=== PATIENT | male | born 1985 | race Caucasian/White ===

== ENCOUNTER 2017-03-19 12:39 | Inpatient (IN) | payer SELFPAY ==
[~2017-03-19] VITALS: Ht 177.8 cm; Wt 67.7 kg
[2017-03-19] VITALS (7 sets, daily range): BP systolic 102–140; BP diastolic 61–86; PULSE 63–97; RESP 16–20; TEMP 96.4–97.7; O2SAT 97–98
[2017-03-19 13:17] LABS: BILIRUBIN, URINE NEG (NEG); BLOOD, URINE TRACE (NEG); GLUCOSE,URINE NEG (NEG); KETONE, URINE NEG (NEG); NITRITE,URINE NEG (NEG); URINE LEUKOCYTE ESTERASE NEG (NEG)
[2017-03-19] MEDS ORDERED: SODIUM CHLOR 0.9% 1000 ML INJ 1,000 ML IV SCH (13:23)
[2017-03-19 13:24] LABS: RBC, URINE 0-3 /hpf (0-3); SQUAMOUS EPITHELIAL CELL URINE 0-5 /hpf (0-5); URINE COLOR YELLOW (YELLW/STRAW)
[2017-03-19] MEDS ORDERED: SODIUM CHLORIDE 0.9% FLUSH 10 ML FLUSH IV FLUSH PRN ×2 (13:30→15:15)
[2017-03-19] MEDS ORDERED: ONDANSETRON HCL 4 MG/2 ML VIAL IVP ONE (13:30)
[2017-03-19] MEDS ORDERED: MORPHINE SULFATE 4 MG/ML INJ IV PUSH ONE (13:30)
--- NOTE | 2017-03-19 13:35 | PD ---
HPI Chief Complaint: GI Complaint Time Seen by Provider: 13:23 Travel History International Travel<30 days: No Contact w/Intl Traveler<30days: No Traveled to known affect area: No History of Present Illness HPI 31yo M presented to the ED with RLQ abdominal pain. Pt states that last night he all of the sudden developed abdominal pain in the periumbilical region that migrated to the RLQ. He describes the pain as sharp and stabbing in nature, constant and a 10/10 on the pain scale. Pt denies eating anything abnormal or any sick contacts. Pt has no previous history of abdominal surgeries. Has a PMH of asthma, prostatitis and GERD. Pt reports nausea, vomiting and diarrhea. Pt denies any hematemesis, coffee ground emesis, hematochezia, lightheadedness, chest pain, SOB, fevers or myalgias. Modifying Factors: None Associated Signs & Symptoms: Nausea, vomiting, right lower quadrant abdominal pain starting last night Risk Factors: None PFSH Social History Tobacco Use: Yes Allergies-Medications (Allergen,Severity, Reaction): Coded Allergies: No Known Allergies (Unverified , 03/19/17) Reported Meds & Prescriptions Reported Meds & Active Scripts Active Reported Proair Respiclick Inh (Albuterol Sulfate) 90 Mcg/Act Aerp 2 Puff INH Q6H PRN Flomax (Tamsulosin HCl) 0.4 Mg Cap 0.8 Mg PO HS Review of Systems Except as stated in HPI: all other systems reviewed are Neg Gastrointestinal: Positive: Nausea, Vomiting, Diarrhea, Abdominal Pain Physical Exam Narrative GENERAL: 31yo M well-developed and well-nourished. In acute distress. Alert and oriented x3. SKIN: Warm and slight diaphoretic. HEAD: Atraumatic. Normocephalic. NECK: Trachea midline. No JVD. Supple. CARDIOVASCULAR: Regular rate and rhythm. RESPIRATORY: No accessory muscle use. Minimal bilateral expiratory wheezing. Breath sounds equal bilaterally. GASTROINTESTINAL: Abdomen soft and nondistended. Hepatic and splenic margins not palpable. Extreme tenderness localized to the RLQ with guarding. MUSCULOSKELETAL: Extremities without clubbing, cyanosis, or edema. No obvious deformities. NEUROLOGICAL: Awake and alert. No obvious cranial nerve deficits. Motor grossly within normal limits. Normal speech. PSYCHIATRIC: Appropriate mood and affect; insight and judgment normal. Data Data Last Documented VS Vital Signs Date Time Temp Pulse Resp B/P (MAP) Pulse Ox O2 Delivery O2 Flow Rate FiO2 03/19/17 14:00 18 03/19/17 13:37 84 134/86 (102) 97 Room Air 03/19/17 12:57 97.7 Orders Orders Urinalysis - C+S If Indicated (03/19/17 12:58) Complete Blood Count With Diff (03/19/17 13:23) Comprehensive Metabolic Panel (03/19/17 13:23) Lipase (03/19/17 13:23) Ct Abd/Pel W Iv Contrast(Rout) (03/19/17 13:23) Iv Access Insert/Monitor (03/19/17 13:23) Ecg Monitoring (03/19/17 13:23) Oximetry (03/19/17 13:23) Morphine Inj (Morphine Inj) (03/19/17 13:30) Ondansetron Inj (Zofran Inj) (03/19/17 13:30) Sodium Chlor 0.9% 1000 Ml Inj (Ns 1000 M (03/19/17 13:23) Sodium Chloride 0.9% Flush (Ns Flush) (03/19/17 13:30) Iohexol 350 Inj (Omnipaque 350 Inj) (03/19/17 14:09) Piperacil-Tazo 3.375 Gm Premix (Zosyn 3. (03/19/17 15:00) Admit Order (Ed Use Only) (03/19/17 14:51) Labs Laboratory Tests Test 03/19/17 12:55 03/19/17 13:26 Urine Collection Type CLEAN CATCH Urine Color YELLOW Urine Turbidity CLEAR Urine pH 6.0 Urine Specific [place] 1.016 Urine Protein NEG mg/dL Urine Glucose (UA) NEG mg/dL Urine Ketones NEG mg/dL Urine Occult Blood TRACE Urine Nitrite NEG Urine Bilirubin NEG Urine Leukocyte Esterase NEG Urine RBC 0-3 /hpf Urine Squamous Epithelial Cells 0-5 /hpf Microscopic Urinalysis Comment CULT NOT INDICATED Urine Collection Time 12:55 White Blood Count 17.7 TH/MM3 Red Blood Count 4.94 MIL/MM3 Hemoglobin 15.1 GM/DL Hematocrit 44.8 % Mean Corpuscular Volume 90.7 FL Mean Corpuscular Hemoglobin 30.5 PG Mean Corpuscular Hemoglobin Concent 33.6 % Red Cell Distribution Width 11.6 % Platelet Count 233 TH/MM3 Mean Platelet Volume 7.8 FL Neutrophils (%) (Auto) 80.5 % Lymphocytes (%) (Auto) 9.7 % Monocytes (%) (Auto) 8.5 % Eosinophils (%) (Auto) 0.8 % Basophils (%) (Auto) 0.5 % Neutrophils # (Auto) 14.3 TH/MM3 Lymphocytes # (Auto) 1.7 TH/MM3 Monocytes # (Auto) 1.5 TH/MM3 Eosinophils # (Auto) 0.1 TH/MM3 Basophils # (Auto) 0.1 TH/MM3 CBC Comment DIFF FINAL Differential Comment Blood Urea Nitrogen 15 MG/DL Creatinine 0.87 MG/DL Random Glucose 110 MG/DL Total Protein 7.5 GM/DL Albumin 4.1 GM/DL Calcium Level 9.6 MG/DL Alkaline Phosphatase 89 U/L Aspartate Amino Transf (AST/SGOT) 23 U/L Alanine Aminotransferase (ALT/SGPT) 31 U/L Total Bilirubin 0.5 MG/DL Sodium Level 139 MEQ/L Potassium Level 3.7 MEQ/L Chloride Level 106 MEQ/L Carbon Dioxide Level 25.3 MEQ/L Estimat Glomerular Filtration Rate 102 ML/MIN Lipase 149 U/L MDM Medical Decision Making Medical Screen Exam Complete: Yes Emergency Medical Condition: Yes Medical Record Reviewed: Yes Interpretation(s) Laboratory Tests Test 03/19/17 12:55 03/19/17 13:26 White Blood Count 17.7 TH/MM3 (4.0-11.0) Neutrophils (%) (Auto) 80.5 % (16.0-70.0) Monocytes (%) (Auto) 8.5 % (0.0-8.0) Neutrophils # (Auto) 14.3 TH/MM3 (1.8-7.7) Monocytes # (Auto) 1.5 TH/MM3 (0-0.9) Random Glucose 110 MG/DL (74-106) Last 24 hours Impressions Abdomen/Pelvis CT 03/19/17 1323 Signed Impressions: Service Date/Time: Sunday, March 19, 2017 14:01 - CONCLUSION: 1. Findings characteristic of mild or early acute appendicitis. Crescencio Rincon MD Differential Diagnosis Gastroenteritis versus dehydration versus metabolic issues versus appendicitis versus cholecystitis versus renal colic Narrative Course CAT scan is indicative of appendicitis and white count is elevated as well. Case is discussed with Dr. Low who would like the patient to be initiated on Zosyn, Nothing by mouth, and be admitted medically. Case is discussed with Dr. Villavicencio for admission. Diagnosis Primary Impression: Appendicitis Admitting Information Admitting Physician Requests: Admit Primo Saini MD Mar 19, 2017 13:35
[2017-03-19] MEDS ORDERED: TAMS5CAP PO (13:45)
[2017-03-19] MEDS ORDERED: ALBU1AER5 INH (13:45)
[2017-03-19 13:46] LABS: CHLORIDE 106 MEQ/L (98-107); SODIUM (NA) 139 MEQ/L (136-145)
[2017-03-19 13:50] LABS: ALBUMIN 4.1 GM/DL (3.4-5.0); AUTOMATED NEUTROPHIL # 14.3 TH/MM3 (1.8-7.7); BASOPHIL # 0.1 TH/MM3 (0-0.2); BASOPHIL % 0.5 % (0.0-2.0); BICARBONATE 25.3 MEQ/L (21.0-32.0); CALCIUM 9.6 MG/DL (8.5-10.1); EOSINOPHIL # 0.1 TH/MM3 (0-0.4); EOSINOPHIL % 0.8 % (0.0-4.0); GLUCOSE,RANDOM 110 MG/DL (74-106); HEMATOCRIT 44.8 % (39.0-51.0); HEMOGLOBIN 15.1 GM/DL (13.0-17.0); LIPASE 149 U/L (73-393); LYMPH % 9.7 % (9.0-44.0); LYMPHOCYTE # 1.7 TH/MM3 (1.0-4.8); MEAN CELL VOLUME 90.7 FL (80.0-100.0); MEAN CORPUSCULAR HEMOGLOBIN 30.5 PG (27.0-34.0); MEAN CORPUSCULAR HGB CONC 33.6 % (32.0-36.0); MEAN PLATELET VOLUME 7.8 FL (7.0-11.0); MONO % 8.5 % (0.0-8.0); MONOCYTE # 1.5 TH/MM3 (0-0.9); NEUT % 80.5 % (16.0-70.0); PLATELET COUNT 233 TH/MM3 (150-450); RED BLOOD COUNT 4.94 MIL/MM3 (4.50-5.90); RED CELL DISTRIBUTION WIDTH 11.6 % (11.6-17.2); WHITE BLOOD COUNT 17.7 TH/MM3 (4.0-11.0)
[2017-03-19 13:51] LABS: BLOOD UREA NITROGEN 15 MG/DL (7-18)
[2017-03-19 13:53] LABS: ALT (GPT) 31 U/L (12-78); AST (GOT) 23 U/L (15-37)
[2017-03-19 13:54] LABS: CREATININE 0.87 MG/DL (0.60-1.30); GLOMERULAR FILTRATION RATE 102 ML/MIN (>89)
[2017-03-19 13:55] LABS: TOTAL BILIRUBIN ADULT 0.5 MG/DL (0.2-1.0); TOTAL PROTEIN 7.5 GM/DL (6.4-8.2)
[2017-03-19 13:56] LABS: ALKALINE PHOSPHATASE 89 U/L (45-117)
[2017-03-19] MEDS ORDERED: IOHEXOL 350 MG/ML 10 ML VIAL (for RAD DIAG) IVCONTRAST ONE (14:09)
--- NOTE | 2017-03-19 14:30 | RADRPT ---
EXAM DATE/TIME: 03/19/2017 14:01 [facility] COMPARISON: No previous studies available for comparison. INDICATIONS : Right lower quadrant pain. IV CONTRAST: 90 cc Omnipaque 350 (iohexol) IV ORAL CONTRAST: No oral contrast ingested. RADIATION DOSE: 6.52 CTDIvol (mGy) MEDICAL HISTORY : Prostatitis. SURGICAL HISTORY : None. ENCOUNTER: Initial ACUITY: 1 day PAIN SCALE: 5/10 LOCATION: Right lower quadrant TECHNIQUE: Volumetric scanning of the abdomen and pelvis was performed. Using automated exposure control and ad justment of the mA and/or kV according to patient size, radiation dose was kept as low as reasonably achievable to obtain optimal diagnostic quality images. DICOM format image data is available electro nically for review and comparison. FINDINGS: LOWER LUNGS: The visualized lower lungs are clear. LIVER: Homogeneous density without lesion. There is no dilation of the biliary tree. No calcified gallston es. SPLEEN: Normal size without lesion. PANCREAS: Within normal limits. KIDNEYS: Normal in size and shape. There is no mass, stone or hydronephrosis. ADRENAL GLANDS: Within normal limits. VASCULAR: There is no aortic aneurysm. BOWEL/MESENTERY: The appendix is prominent measuring up to approximately 1.4 cm in greatest diameter with calcified ap pendicolith present. There is mild wall thickening measuring up to 3-4 mm with mild surrounding infla mmatory change. The stomach, small bowel, and colon demonstrate no acute abnormality. There is no fr ee intraperitoneal air or fluid. No oral contrast was given within the sensitivity of the exam. ABDOMINAL WALL: Within normal limits. RETROPERITONEUM: There is no lymphadenopathy. BLADDER: No wall thickening or mass. REPRODUCTIVE: Within normal limits. INGUINAL: There is no lymphadenopathy or hernia. MUSCULOSKELETAL: Within normal limits for patient age. CONCLUSION: 1. Findings characteristic of mild or early acute appendicitis. Crescencio Rincon MD on March 19, 2017 at 14:21 Board Certified Radiologist. This report was verified electronically.
[2017-03-19] MEDS ORDERED: PIPERACIL-TAZO 3.375 GM PREMIX 50 ML IV ONE (15:00)
[2017-03-19] MEDS ORDERED: MORPHINE SULFATE 2 MG/ML INJ IV PUSH ONE (15:15)
[2017-03-19] MEDS ORDERED: NALOXONE HCL 0.4 MG/ML AMP IV PUSH PRN (15:15)
[2017-03-19] MEDS ORDERED: ONDANSETRON HCL 4 MG/2 ML VIAL IVP PRN (15:15)
[2017-03-19] MEDS ORDERED: ONDANSETRON HCL 4 MG/2 ML VIAL IV PUSH ONE (15:15)
[2017-03-19] MEDS ORDERED: BUPIVACAINE/EPINEPHRINE 0.25% PF 30 ML VIAL ONE (15:50)
--- NOTE | 2017-03-19 15:51 | HHI.HP ---
[facility] Service [facility] Primary Care Physician No Primary Care Physician Admission Diagnosis acute appendicitis Diagnoses: Chief Complaint: Abdominal pain Travel History International Travel<30 Days: No Contact w/Intl Traveler <30 Da: No Traveled to Known Affected Are: No History of Present Illness This patient is a 31-year-old gentleman with a history of well-controlled asthma complains of a one day of sudden severe right lower quadrant abdominal pain worse with movement and associated with nausea and vomiting. It was not relieved with Tums or Pepto-Bismol. It is improved with IV hydration and with IV morphine. Patient came to the emergency room because several family members and his lifetime have had similar complaints and ended up having their appendix removed. Patient did come to the emergency room where he had CT findings which were consistent with early appendicitis. Patient is recommended for appendix removal by general surgery. For these reasons he is admitted to the hospital. Review of Systems Constitutional: DENIES: Diaphoretic episodes, Fatigue, Fever, Weight gain, Weight loss, Chills, Dizziness, Change in appetite, Night Sweats Endocrine: DENIES: Heat/cold intolerance, Polydipsia, Polyuria, Polyphagia Eyes: DENIES: Blurred vision, Diplopia, Eye inflammation, Eye pain, Vision loss , Photosensitivity, Double Vision Ears, nose, mouth, throat: DENIES: Tinnitus, Hearing loss, Vertigo, Nasal discharge, Oral lesions, Throat pain, Hoarseness, Ear Pain, Running Nose, Epistaxis, Sinus Pain, Toothache, Odynophagia Respiratory: DENIES: Apneas, Cough, Snoring, Wheezing, Hemoptysis, Sputum production, Shortness of breath Cardiovascular: DENIES: Chest pain, Palpitations, Syncope, Dyspnea on Exertion , PND, Lower Extremity Edema, Orthopnea, Claudication Gastrointestinal: COMPLAINS OF: Abdominal pain, Diarrhea, Nausea, Vomiting Genitourinary: DENIES: Sexual dysfunction, Urinary frequency, Urinary incontinence, Urgency, Hematuria, Dysuria, Nocturia, Penile Discharge, Testicular Pain, Testicular Swelling Musculoskeletal: DENIES: Joint pain, Muscle aches, Stiffness, Joint Swelling, Back pain, Neck pain Integumentary: DENIES: Abnormal pigmentation, Nail changes, Pruritus, Rash Hematologic/lymphatic: DENIES: Bruising, Lymphadenopathy Immunologic/allergic: DENIES: Eczema, Urticaria Neurologic: DENIES: Abnormal gait, Headache, Localized weakness, Paresthesias, Seizures, Speech Problems, Tremor, Poor Balance Psychiatric: DENIES: Anxiety, Confusion, Mood changes, Depression, Hallucinations, Agitation, Suicidal Ideation, Homicidal Ideation, Delusions Except as stated in HPI: all other systems reviewed are Neg Past Family Social History Past Medical History Asthma and seasonal allergies Past Surgical History Denies Reported Medications Reviewed in the EMR Allergies: Coded Allergies: No Known Allergies (Unverified , 03/19/17) Active Ordered Medications reviewed in the EMR Family History Mother is alive and well, father has kidney stones and otherwise is healthy Social History No tobacco or alcohol dependency, alcohol infrequently Unemployed, recently moved from [place] Physical Exam Vital Signs Vital Signs Date Time Temp Pulse Resp B/P (MAP) Pulse Ox O2 Delivery O2 Flow Rate FiO2 03/19/17 15:35 03/19/17 15:35 83 17 121/81 (94) 98 Room Air 03/19/17 14:58 81 17 140/83 (102) 98 Room Air 03/19/17 14:00 18 03/19/17 13:37 84 18 134/86 (102) 97 Room Air 03/19/17 12:57 97.7 97 16 127/72 (90) 97 Physical Exam GENERAL: This is a well-nourished, well-developed patient, in no apparent distress. SKIN: No rashes, ecchymoses or lesions. Cool and dry. HEAD: Atraumatic. Normocephalic. No temporal or scalp tenderness. EYES: Pupils equal round and reactive. Extraocular motions intact. No scleral icterus. No injection or drainage. ENT: Nose without bleeding, purulent drainage or septal hematoma. Throat without erythema, tonsillar hypertrophy or exudate. Uvula midline. Airway patent. NECK: Trachea midline. No JVD or lymphadenopathy. Supple, nontender, no meningeal signs. CARDIOVASCULAR: Regular rate and rhythm without murmurs, gallops, or rubs. RESPIRATORY: Clear to auscultation. Breath sounds equal bilaterally. No wheezes , rales, or rhonchi. GASTROINTESTINAL: Abdomen soft, non-tender, nondistended. No hepato-splenomegaly , or palpable masses. No guarding. MUSCULOSKELETAL: Extremities without clubbing, cyanosis, or edema. No joint tenderness, effusion, or edema noted. No calf tenderness. Negative Homans sign bilaterally. NEUROLOGICAL: Awake and alert. Cranial nerves II through XII intact. Motor and sensory grossly within normal limits. Five out of 5 muscle strength in all muscle groups. Normal speech. Laboratory Laboratory Tests Test 03/19/17 12:55 03/19/17 13:26 Urine Collection Type CLEAN CATCH Urine Color YELLOW Urine Turbidity CLEAR Urine pH 6.0 Urine Specific [place] 1.016 Urine Protein NEG Urine Glucose (UA) NEG Urine Ketones NEG Urine Occult Blood TRACE Urine Nitrite NEG Urine Bilirubin NEG Urine Leukocyte Esterase NEG Urine RBC 0-3 Urine Squamous Epithelial Cells 0-5 Microscopic Urinalysis Comment CULT NOT INDICATED Urine Collection Time 12:55 White Blood Count 17.7 Red Blood Count 4.94 Hemoglobin 15.1 Hematocrit 44.8 Mean Corpuscular Volume 90.7 Mean Corpuscular Hemoglobin 30.5 Mean Corpuscular Hemoglobin Concent 33.6 Red Cell Distribution Width 11.6 Platelet Count 233 Mean Platelet Volume 7.8 Neutrophils (%) (Auto) 80.5 Lymphocytes (%) (Auto) 9.7 Monocytes (%) (Auto) 8.5 Eosinophils (%) (Auto) 0.8 Basophils (%) (Auto) 0.5 Neutrophils # (Auto) 14.3 Lymphocytes # (Auto) 1.7 Monocytes # (Auto) 1.5 Eosinophils # (Auto) 0.1 Basophils # (Auto) 0.1 CBC Comment DIFF FINAL Differential Comment Blood Urea Nitrogen 15 Creatinine 0.87 Random Glucose 110 Total Protein 7.5 Albumin 4.1 Calcium Level 9.6 Alkaline Phosphatase 89 Aspartate Amino Transf (AST/SGOT) 23 Alanine Aminotransferase (ALT/SGPT) 31 Total Bilirubin 0.5 Sodium Level 139 Potassium Level 3.7 Chloride Level 106 Carbon Dioxide Level 25.3 Estimat Glomerular Filtration Rate 102 Lipase 149 Result Diagram: 03/19/17 1326 03/19/17 1326 Imaging Last Impressions Abdomen/Pelvis CT 03/19/17 1323 Signed Impressions: Service Date/Time: Sunday, March 19, 2017 14:01 - CONCLUSION: 1. Findings characteristic of mild or early acute appendicitis. MD Alexander Villalobos VTE Risk Assessment Alexander VTE Risk Assessment: No/Low Risk (score <= 1) Caprini Risk Assessment Model Point Value = 1 Point Value = 2 Point Value = 3 Point Value = 5 Age 41-60 Minor surgery BMI > 25 kg/m2 Swollen legs Varicose veins or History of unexplained or recurrent spontaneous Oral contraceptives or hormone replacement Sepsis (< 1 month) Serious lung disease, including pneumonia (< 1 month) Abnormal pulmonary function Acute myocardial infarction Congestive heart failure (< 1 month) History of inflammatory bowel disease Medical patient at bed rest Age 61-74 Arthroscopic surgery Major open surgery (> 45 min) Laparoscopic surgery (> 45 min) Malignancy Confined to bed (> 72 hours) Immobilizing plaster cast Central venous access Age >= 75 History of VTE Family history of VTE Factor V Leiden Prothrombin [id number] Lupus anticoagulant Anticardiolipin antibodies Elevated serum homocysteine Heparin-induced thrombocytopenia Other congenital or acquired thrombophilia Stroke (< 1 month) Elective arthroplasty Hip, pelvis, or leg fracture Acute spinal cord injury (< 1 month) Prophylaxis Regimen Total Risk Factor Score Risk Level Prophylaxis Regimen 0-1 Low Early ambulation 2 Moderate Order ONE of the following: *Sequential Compression Device (SCD) *Heparin 5000 units SQ BID 3-4 Higher Order ONE of the following medications: *Heparin 5000 units SQ TID *Enoxaparin/Lovenox 40 mg SQ daily (WT < 150 kg, CrCl > 30 mL/min) *Enoxaparin/Lovenox 30 mg SQ daily (WT < 150 kg, CrCl > 10-29 mL/min) *Enoxaparin/Lovenox 30 mg SQ BID (WT < 150 kg, CrCl > 30 mL/min) AND/OR *Sequential Compression Device (SCD) 5 or more Highest Order ONE of the following medications: *Heparin 5000 units SQ TID (Preferred with Epidurals) *Enoxaparin/Lovenox 40 mg SQ daily (WT < 150 kg, CrCl > 30 mL/min) *Enoxaparin/Lovenox 30 mg SQ daily (WT < 150 kg, CrCl > 10-29 mL/min) *Enoxaparin/Lovenox 30 mg SQ BID (WT < 150 kg, CrCl > 30 mL/min) AND *Sequential Compression Device (SCD) Assessment and Plan Problem List: (1) Asthma ICD Code: J45.909 - Unspecified asthma, uncomplicated Plan: Bronchodilators as needed No evidence of exacerbation at this time (2) Appendicitis ICD Code: K37 - Unspecified appendicitis Status: Acute Plan: Continue plans for surgical treatment IV hydration Nothing by mouth General surgery has been consulted Continue IV narcotics for pain and IV antiemetics Roseanne Villavicencio MD Mar 19, 2017 15:51
[2017-03-19] MEDS ORDERED: LACTATED RINGER'S 1000 ML INJ 1,000 ML ONE (15:56)
[2017-03-19] MEDS ORDERED: ALBUTEROL INH PRN (16:30)
[2017-03-19] MEDS ORDERED: ACETAMINOPHEN/HYDROcodone 325 MG/5 MG TAB PO PRN (17:00)
[2017-03-19] MEDS ORDERED: MORPHINE SULFATE 2 MG/ML INJ IV PUSH PRN (17:00)
--- NOTE | 2017-03-19 17:00 | HHI.PR ---
cc: Crescencio Low MD Immediate Post Op Note Procedure Date: Mar 19, 2017 Pre Op Diagnosis: Acute Appendicitis Post Op Diagnosis: Acute appendicitis without perforation Surgeon: Crescencio Low Community Nutrition Educator(s): Trupti Gerard CST Procedure: Laparoscopic appendectomy Complications: None Specimen(s) removed: Appendix to pathology Estimated blood loss: 5 ml Anesthesia: General Drains: None IVF (900 ml) Patient to: PACU Patient Condition: Good Date/Time of Procedure: SEE SURGICAL CARE RECORD Crescencio Low MD Mar 19, 2017 17:00
[2017-03-19] MEDS ORDERED: *Lactated Ringer's INJ 1,000 ML ONE (17:04)
[2017-03-19] MEDS ORDERED: *MEPERIDINE 25 MG INJ VIAL PERIprocedural Use ONLY ONE (17:05)
[2017-03-19] MEDS ORDERED: MORPHINE SULFATE 8 MG/ML INJ ONE (17:21)
--- NOTE | 2017-03-19 18:13 | MP ---
cc: AZUL LOW M.D. DATE OF SURGERY: 03/19/2017. PREOPERATIVE DIAGNOSIS: Acute appendicitis. POSTOPERATIVE DIAGNOSIS: Acute appendicitis without perforation OPERATIVE PROCEDURE PERFORMED: Laparoscopic cholecystectomy SURGEON: Azul Low MD. ANESTHESIA General endotracheal ESTIMATED BLOOD LOSS: 5 mL. FLUIDS: 900 mL crystalloid. COMPLICATIONS: None. DRAINS: None. SPECIMEN: Appendix to pathology. DESCRIPTION OF THE PROCEDURE IN DETAIL: The patient was taken to the operating room and placed on the operating table in the supine position. After an adequate level of general endotracheal anesthesia was achieved, the abdomen was shaved, prepped and draped. Time-out was taken confirming the correct patient, site and procedure to be performed. Skin and subcutaneous tissue was infiltrated with local anesthetic, and an incision made in the umbilicus and carried through the fascia sharply. The peritoneal cavity was directly visualized. A 12 mm balloon trocar was inserted and the balloon inflated. The abdomen was insufflated. The patient was placed in Trendelenburg position. Two 5 mm trocars were then placed with the first in the right lower quadrant and the second in the suprapubic region; both entered the abdominal cavity under direct vision uneventfully. The appendix was manipulated into view and was seen to be quite long and dilated at the end. The mesoappendix was taken down with the harmonic scalpel and dissection carried back to the base of the appendix. A #0 PDS Endoloop was slipped over the appendix and cinched down at the base. The appendix was then divided with the harmonic scalpel 1 cm distal to the suture and the appendix then placed into an EndoCatch device and removed via the umbilical port while observing via the right lower quadrant trocar site. The specimen was passed off the table. The right lower quadrant was visualized as was the cul-de-sac and both were seen to be clean and dry. A very small amount of blood was suctioned and the appendiceal stump and mesoappendix were then seen to be dry. Insufflation was discontinued. The 5-mm trocars were removed under direct vision. No bleeding was noted from the trocar sites during desufflation. The laparoscope and umbilical port were then removed. The fascia was closed in the umbilicus with #0 Vicryl suture in both a simple interrupted and [id number] fashion. The remaining local anesthetic was injected into each of the trocar sites. The skin was closed at each of the trocar sites with 4-0 Vicryl in an interrupted buried fashion. All trocar sites were dressed with Steri-Strips. The patient was extubated and taken back to the recovery room in stable condition. Sponge and needle counts were reported be correct. The patient tolerated the procedure well. MD OVIDIO Robles/RICO /5:02 PM /6:03 PM
[2017-03-19] MEDS: SODIUM CHLOR 0.9% 1000 ML INJ 1,000 ML IV SCH (18:18)
[2017-03-19] MEDS: SODIUM CHLORIDE 0.9% FLUSH 10 ML FLUSH IV FLUSH SCH (19:45)
[2017-03-19] MEDS: DOCUSATE SODIUM 50 MG/SENNA 8.6 MG TAB PO SCH (20:13)
[2017-03-19] MEDS: MORPHINE SULFATE 2 MG/ML INJ IV PUSH PRN (20:14)
[2017-03-19] MEDS: ACETAMINOPHEN/HYDROcodone 325 MG/5 MG TAB PO PRN (22:11)
[2017-03-19] MEDS: NICOTINE 7 MG/24 HR PATCH T-DERMAL SCH (22:15)
[2017-03-20] VITALS: BP 102/66; PULSE 74; RESP 20; TEMP 96.2; O2SAT 98
[2017-03-20] MEDS: MORPHINE SULFATE 2 MG/ML INJ IV PUSH PRN ×2 (00:25→04:18)
[2017-03-20 04:00] VITALS: BP 105/66; PULSE 60; RESP 20; TEMP 97.9; O2SAT 98
[2017-03-20] MEDS: SODIUM CHLOR 0.9% 1000 ML INJ 1,000 ML IV SCH ×2 (04:21→11:00)
[2017-03-20] MEDS: ACETAMINOPHEN/HYDROcodone 325 MG/5 MG TAB PO PRN ×2 (05:47→10:13)
[2017-03-20 06:21] LABS: AUTOMATED NEUTROPHIL # 11.6 TH/MM3 (1.8-7.7); BASOPHIL % 0.1 % (0.0-2.0); EOSINOPHIL % 0.1 % (0.0-4.0); HEMATOCRIT 38.9 % (39.0-51.0); HEMOGLOBIN 12.8 GM/DL (13.0-17.0); LYMPH % 9.6 % (9.0-44.0); LYMPHOCYTE # 1.3 TH/MM3 (1.0-4.8); MEAN CELL VOLUME 91.9 FL (80.0-100.0); MEAN CORPUSCULAR HEMOGLOBIN 30.2 PG (27.0-34.0); MEAN CORPUSCULAR HGB CONC 32.8 % (32.0-36.0); MEAN PLATELET VOLUME 8.5 FL (7.0-11.0); MONO % 7.2 % (0.0-8.0); PLATELET COUNT 194 TH/MM3 (150-450); RED BLOOD COUNT 4.24 MIL/MM3 (4.50-5.90); RED CELL DISTRIBUTION WIDTH 11.7 % (11.6-17.2); WHITE BLOOD COUNT 13.9 TH/MM3 (4.0-11.0)
[2017-03-20 06:30] LABS: CHLORIDE 104 MEQ/L (98-107); SODIUM (NA) 139 MEQ/L (136-145)
[2017-03-20 06:45] LABS: ALBUMIN 3.5 GM/DL (3.4-5.0); ALKALINE PHOSPHATASE 75 U/L (45-117); ALT (GPT) 22 U/L (12-78); AST (GOT) 15 U/L (15-37); BICARBONATE 24.9 MEQ/L (21.0-32.0); BLOOD UREA NITROGEN 10 MG/DL (7-18); CALCIUM 8.5 MG/DL (8.5-10.1); CREATININE 0.88 MG/DL (0.60-1.30); GLOMERULAR FILTRATION RATE 100 ML/MIN (>89); GLUCOSE,RANDOM 105 MG/DL (74-106); TOTAL BILIRUBIN ADULT 0.5 MG/DL (0.2-1.0); TOTAL PROTEIN 6.5 GM/DL (6.4-8.2)
[2017-03-20 07:50] VITALS: BP 99/56; PULSE 65; RESP 20; TEMP 96.7; O2SAT 97
[2017-03-20] MEDS: SODIUM CHLORIDE 0.9% FLUSH 10 ML FLUSH IV FLUSH SCH (09:00)
--- NOTE | 2017-03-20 09:01 | HHI.PR ---
cc: Crescencio Low MD Subjective Subjective Notes Doing well C/o RIGHT shoulder pain Objective Vitals/I&O Vital Signs Date Time Temp Pulse Resp B/P (MAP) Pulse Ox O2 Delivery O2 Flow Rate FiO2 03/20/17 04:00 97.9 60 20 105/66 (79) 98 03/19/17 17:45 Room Air Labs Laboratory Tests Test 03/19/17 12:55 03/19/17 13:26 03/20/17 05:45 Urine Collection Type CLEAN CATCH Urine Color YELLOW Urine Turbidity CLEAR Urine pH 6.0 Urine Specific [place] 1.016 Urine Protein NEG Urine Glucose (UA) NEG Urine Ketones NEG Urine Occult Blood TRACE Urine Nitrite NEG Urine Bilirubin NEG Urine Leukocyte Esterase NEG Urine RBC 0-3 Urine Squamous Epithelial Cells 0-5 Microscopic Urinalysis Comment CULT NOT INDICATED Urine Collection Time 12:55 White Blood Count 17.7 13.9 Red Blood Count 4.94 4.24 Hemoglobin 15.1 12.8 Hematocrit 44.8 38.9 Mean Corpuscular Volume 90.7 91.9 Mean Corpuscular Hemoglobin 30.5 30.2 Mean Corpuscular Hemoglobin Concent 33.6 32.8 Red Cell Distribution Width 11.6 11.7 Platelet Count 233 194 Mean Platelet Volume 7.8 8.5 Neutrophils (%) (Auto) 80.5 83.0 Lymphocytes (%) (Auto) 9.7 9.6 Monocytes (%) (Auto) 8.5 7.2 Eosinophils (%) (Auto) 0.8 0.1 Basophils (%) (Auto) 0.5 0.1 Neutrophils # (Auto) 14.3 11.6 Lymphocytes # (Auto) 1.7 1.3 Monocytes # (Auto) 1.5 1.0 Eosinophils # (Auto) 0.1 0.0 Basophils # (Auto) 0.1 0.0 CBC Comment DIFF FINAL DIFF FINAL Differential Comment Blood Urea Nitrogen 15 10 Creatinine 0.87 0.88 Random Glucose 110 105 Total Protein 7.5 6.5 Albumin 4.1 3.5 Calcium Level 9.6 8.5 Alkaline Phosphatase 89 75 Aspartate Amino Transf (AST/SGOT) 23 15 Alanine Aminotransferase (ALT/SGPT) 31 22 Total Bilirubin 0.5 0.5 Sodium Level 139 139 Potassium Level 3.7 3.6 Chloride Level 106 104 Carbon Dioxide Level 25.3 24.9 Estimat Glomerular Filtration Rate 102 100 Lipase 149 Anion Gap 10 Cardiovascular: Regular Lungs: Clear Abdomen: Other (lap sites c/d/i ), Post-op tenderness Extremities: No edema A/P Assessment and Plan 31 year old male POD1 lap appy -DC IVF -PO pain meds -Regular diet -Explained shoulder pain due to CO2 used during surgery---encouraged ambulation -GS clear for DC after breakfast -Follow up with Dr. Low Mar 28 at 2:50PM Attending Note - Dr. Low Abdomen benign; stable for discharge The exam, history, and the medical decision-making described in the above note were completed with the assistance of the mid-level provider. I reviewed and agree with the findings presented. I attest that I had a [id number] encounter with the patient on the same day, and personally performed and documented my assessment and findings in the medical record. Tiffanie Araujo Mar 20, 2017 09:01 Crescencio Low MD Mar 21, 2017 19:48
[2017-03-20] MEDS ORDERED: HYDR-3516 PO (09:02)
--- NOTE | 2017-03-20 09:53 | HHI.DCPOC ---
Discharge Care Plan Diagnosis: (1) Appendicitis Goals to Promote Your Health * To prevent worsening of your condition and complications * To maintain your health at the optimal level Directions to Meet Your Goals Take your medications as prescribed Follow your dietary instruction Follow activity as directed Keep your appointments as scheduled Take your immunizations and boosters as scheduled If your symptoms worsen call your PCP, if no PCP go to Urgent Care Center or Emergency Room Smoking is Dangerous to Your Health. Avoid second hand smoke Call the 24-hour hour crisis hotline for domestic abuse at Roseanne Villavicencio MD Mar 20, 2017 09:53
[2017-03-20] MEDS: NICOTINE 7 MG/24 HR PATCH T-DERMAL SCH (10:12)
[2017-03-20] MEDS: DOCUSATE SODIUM 50 MG/SENNA 8.6 MG TAB PO SCH (10:12)
[2017-03-20 11:50] VITALS: BP 106/60; PULSE 71; RESP 20; TEMP 97.2; O2SAT 97
--- NOTE | 2017-03-20 12:21 | HHI.PR ---
Subjective Remarks Patient doing well today. Discharge plans discussed with patient and significant other. Pain is controlled. Diet tolerated Objective Vitals Vital Signs Date Time Temp Pulse Resp B/P (MAP) Pulse Ox O2 Delivery O2 Flow Rate FiO2 03/20/17 11:13 18 03/20/17 07:50 96.7 65 20 99/56 (70) 97 03/20/17 04:00 97.9 60 20 105/66 (79) 98 03/20/17 00:00 96.2 74 20 102/66 (78) 98 03/19/17 20:00 96.9 63 20 102/76 (85) 97 03/19/17 18:00 96.4 78 16 104/61 (75) 98 03/19/17 17:45 98.2 60 14 93/55 (68) 96 Room Air 03/19/17 17:30 74 14 98/56 (70) 98 Room Air 03/19/17 17:15 70 14 110/62 (78) 98 Room Air 03/19/17 17:00 97.6 71 16 110/59 (76) 97 Room Air 03/19/17 17:00 71 03/19/17 15:35 03/19/17 15:35 83 17 121/81 (94) 98 Room Air 03/19/17 14:58 81 17 140/83 (102) 98 Room Air 03/19/17 14:00 18 03/19/17 13:37 84 18 134/86 (102) 97 Room Air 03/19/17 12:57 97.7 97 16 127/72 (90) 97 I/O 03/19/17 03/19/17 03/19/17 03/20/17 03/20/17 03/20/17 07:00 15:00 23:00 07:00 15:00 23:00 Intake Total 1000 ml 4450 ml 720 ml Output Total 475 ml 5 ml Balance 525 ml 4445 ml 720 ml Intake Oral 0 ml 720 ml IV Total 1000 ml 3050 ml Other 1400 ml Output Urine Total 475 ml Estimated Blood Loss 5 ml # Voids 1 0 3 # Bowel Movements 0 Result Diagram: 03/20/17 0545 03/20/17 0545 Imaging Last Impressions Abdomen/Pelvis CT 03/19/17 1323 Signed Impressions: Service Date/Time: Sunday, March 19, 2017 14:01 - CONCLUSION: 1. Findings characteristic of mild or early acute appendicitis. Crescencio Rincon MD Objective Remarks GENERAL: This is a well-nourished, well-developed patient, in no apparent distress. CARDIOVASCULAR: Regular rate and rhythm without murmurs, gallops, or rubs. RESPIRATORY: Clear to auscultation. Breath sounds equal bilaterally. No wheezes , rales, or rhonchi. GASTROINTESTINAL: Abdomen soft, non-tender, nondistended. Normal active bowel sounds MUSCULOSKELETAL: Extremities without clubbing, cyanosis, or edema. NEURO: Alert & Oriented x4 to person, place, time, situation. Moves all ext x4 Procedures Appendectomy A/P Problem List: (1) Asthma ICD Code: J45.909 - Unspecified asthma, uncomplicated Plan: Bronchodilators as needed No evidence of exacerbation at this time (2) Appendicitis ICD Code: K37 - Unspecified appendicitis Status: Acute Plan: Postop day 1 status post appendectomy Doing well Pain is controlled and diet has been advanced Discharge home Activity unrestricted Diet regular Roseanne Villavicencio MD Mar 20, 2017 12:21
[2017-03-20] MEDS ORDERED: REMOVE OLD PATCH T-DERMAL SCH (21:00)
== END 2017-03-20 12:45 | disposition home or self-care (01) | DRG 343 ==
LOC: PHED 12:39 → PHEDA 14:52 → UNDOADMOB 14:52 → OBSVTOIN 15:07 → PH3A 18:07
PROVIDERS: ADMIT Hospitalist; ATTEND Hospitalist
PROC: 0DTJ4ZZ Resection of Appendix, Percutaneous Endoscopic Approach (ICD-10-PCS; principal; 2017-03-19 16:08)
DX: K35.80 Unspecified acute appendicitis (principal); J45.909 Unspecified asthma, uncomplicated; K21.9 Gastro-esophageal reflux disease without esophagitis; Z72.0 Tobacco use; M25.511 Pain in right shoulder
CPT/HCPCS: 74177; 80053; 81001; 83690; 85025; 88304; 96361; 96374; 96375; J2175; J2270; J2405; J2543; J3010; J7030; J7120; Q9967

== ENCOUNTER 2017-04-27 00:57 | Emergency (ER) | payer SELFPAY ==
[~2017-04-27] VITALS: Ht 177.8 cm; Wt 66.0 kg
[~2017-04-27 00:57] MED LIST: ALBU1AER5 INH; HYDR-3516 PO; TAMS5CAP PO
[2017-04-27 00:59] VITALS: BP 136/83; PULSE 100; RESP 16; TEMP 98.5; O2SAT 98
[2017-04-27] MEDS ORDERED: DICL75TA PO (02:23)
[2017-04-27] MEDS ORDERED: AMOX500C PO (02:23)
--- NOTE | 2017-04-27 02:28 | PD ---
HPI Chief Complaint: ENT Complaint Time Seen by Provider: 02:19 Travel History International Travel<30 days: No Contact w/Intl Traveler<30days: No Traveled to known affect area: No History of Present Illness HPI 31-year-old white male presents to emergency Department with complaints of right ear pain over the past several days. He says it appears to be also in his mouth up into his right jaw. He has had dental problems in the past but is had multiple both teeth removed. He denies any fever or chills. He denies any sore throat, cough or congestion. Symptoms are moderate. Worse with palpation of the right face. PFSH Past Medical History Asthma: Yes Cancer: No Cardiovascular Problems: No COPD: No Diminished Hearing: No Endocrine: No GERD: Yes Genitourinary: Yes (prostatitis) Hiatal Hernia: No Immune Disorder: No Kidney Stones: No Musculoskeletal: No Neurologic: No Psychiatric: No Reproductive: No Respiratory: Yes Renal Failure: No Sleep Apnea: No Ulcer: No Tetanus Vaccination: < 5 Years Past Surgical History AICD: No Appendectomy: Yes Arteriovenous Shunt: No Cardiac Surgery: No Ear Surgery: No Endocrine Surgery: No Eye Surgery: No Genitourinary Surgery: No Insulin Pump: No Joint Replacement: No Oral Surgery: No Pacemaker: No Thoracic Surgery: No Social History Alcohol Use: Yes (occassional) Tobacco Use: Yes (10 CIGS PER DAY) Substance Use: Yes (daily marijuana) Allergies-Medications (Allergen,Severity, Reaction): Coded Allergies: No Known Allergies (Unverified , 04/27/17) Reported Meds & Prescriptions Reported Meds & Active Scripts Active Hydrocodone-Acetamin 5-325 mg (Hydrocodone/Acetaminophen) 5 Mg-325 Mg Tablet 1 Tab PO Q4H PRN Reported Proair Respiclick Inh (Albuterol Sulfate) 90 Mcg/Act Aerp 2 Puff INH Q6H PRN Flomax (Tamsulosin HCl) 0.4 Mg Cap 0.8 Mg PO HS Review of Systems General / Constitutional: No: Fever Eyes: No: Visual changes HENT: Positive: Dental Difficulties, Earache, No: Headaches, Sore Throat, Gingival Bleeding, Ear Discharge Cardiovascular: No: Chest Pain or Discomfort Respiratory: No: Shortness of Breath Gastrointestinal: No: Abdominal Pain Genitourinary: No: Dysuria Musculoskeletal: No: Pain Skin: No Rash Neurologic: No: Weakness Psychiatric: No: Depression Endocrine: No: Polydipsia Hematologic/Lymphatic: No: Easy Bruising Physical Exam Narrative GENERAL: Well-developed, well-nourished in no acute distress. Nontoxic appearing. HEAD: Normocephalic, atraumatic. EYES: Pupils equal round and reactive. Extraocular motions intact. No scleral icterus. No injection or drainage. ENT: TMs clear without erythema. The external auditory canals clear. Nose: clear . Posterior pharynx is pink and moist. No tonsillar edema or exudate. Uvula midline. Airway patent. Patient has multiple dental caries. He has pain to the right intraoral cavity in the area of his molars. No gingival erythema or edema. NECK: Trachea midline.Supple, nontender, moves head freely. No central bony tenderness or spasm. CARDIOVASCULAR: Regular rate and rhythm without murmurs, gallops, or rubs. RESPIRATORY: Clear to auscultation. Breath sounds equal bilaterally. No wheezes , rales, or rhonchi. GASTROINTESTINAL: Abdomen soft, non-tender, nondistended. No hepato-splenomegaly , or palpable masses. No guarding. EXTREMITIES: No clubbing, cyanosis, or edema. No joint tenderness, effusion, or edema noted. BACK: Nontender without deformity or crepitance. No flank tenderness. Data Data Last Documented VS Vital Signs Date Time Temp Pulse Resp B/P (MAP) Pulse Ox O2 Delivery O2 Flow Rate FiO2 04/27/17 00:59 98.5 100 16 136/83 (100) 98 Room Air Orders Orders Ed Discharge Order (04/27/17 02:21) Amoxicillin (Trimox) (04/27/17 02:30) Ibuprofen (Motrin) (04/27/17 02:30) MDM Medical Decision Making Medical Screen Exam Complete: Yes Emergency Medical Condition: Yes Medical Record Reviewed: Yes Differential Diagnosis MDM: Moderate Differential diagnoses: Dental abscess, dental caries, osteitis, cellulitis, otitis externa Narrative Course Patient is given amoxicillin 500 mg and Motrin 800 mg by mouth. This is dental caries Diagnosis Primary Impression: Dental caries Additional Impression: Dentalgia Patient Instructions: General Instructions Additional Instructions: Rest. [place] gargles. [place] oil on cotton balls. Amoxicillin and diclofenac follow-up with a dentist as soon as possible. And return to the ER if any problems. Med/Other Pt SpecificInfo: Prescription(s) given Scripts Diclofenac Sodium DR (Diclofenac Sodium DR) 75 Mg Tabdr 75 MG PO BID, #20 TAB 0 Refills Prov: Sami Cardona MD 04/27/17 Amoxicillin (Amoxicillin) 500 Mg Cap 500 MG PO TID for Infection for 10 Days, CAP 0 Refills Prov: Sami Cardona MD 04/27/17 Disposition: 01 DISCHARGE HOME Condition: Stable Tramaine Zapata Apr 27, 2017 02:28
[2017-04-27] MEDS ORDERED: AMOXICILLIN (TRIHYDRATE) 500 MG CAP PO ONE (02:30)
[2017-04-27] MEDS ORDERED: IBUPROFEN 800 MG TAB PO ONE (02:30)
== END 2017-04-27 02:41 | disposition home or self-care (01) ==
LOC: NEPD 00:57
DX: K02.9 Dental caries, unspecified (principal); F17.210 Nicotine dependence, cigarettes, uncomplicated; F12.90 Cannabis use, unspecified, uncomplicated; J45.909 Unspecified asthma, uncomplicated
CPT/HCPCS: 99283

== ENCOUNTER 2017-07-12 18:53 | Emergency (ER) | payer SELFPAY ==
[~2017-07-12 18:53] MED LIST changes: +AMOX500C PO; +DICL75TA PO
[2017-07-12 19:24] VITALS: BP 124/78; PULSE 102; RESP 18; TEMP 98.4; O2SAT 97
[2017-07-12 21:15] VITALS: BP 114/81; PULSE 96; RESP 16; O2SAT 98
[2017-07-12] MEDS ORDERED: SODIUM CHLOR 0.9% 1000 ML INJ 1,000 ML IV SCH (21:24)
[2017-07-12] MEDS ORDERED: ONDANSETRON HCL 4 MG/2 ML VIAL IVP ONE (21:30)
[2017-07-12] MEDS ORDERED: KETOROLAC TROMETHAMINE 30 MG/ML (IVP) VIAL IVP ONE (21:30)
[2017-07-12] MEDS ORDERED: SODIUM CHLORIDE 0.9% FLUSH 10 ML FLUSH IV FLUSH PRN (21:30)
[2017-07-12 21:44] VITALS: O2SAT 100
[2017-07-12] MEDS ORDERED: IOHEXOL 350 MG/ML 10 ML VIAL (for RAD DIAG) IVCONTRAST ONE (21:51)
[2017-07-12 22:09] LABS: AUTOMATED NEUTROPHIL # 6.1 TH/MM3 (1.8-7.7); BASOPHIL # 0.2 TH/MM3 (0-0.2); BASOPHIL % 1.7 % (0.0-2.0); EOSINOPHIL % 0.5 % (0.0-4.0); HEMATOCRIT 45.6 % (39.0-51.0); HEMOGLOBIN 15.9 GM/DL (13.0-17.0); LYMPH % 22.9 % (9.0-44.0); LYMPHOCYTE # 2.1 TH/MM3 (1.0-4.8); MEAN CELL VOLUME 87.9 FL (80.0-100.0); MEAN CORPUSCULAR HEMOGLOBIN 30.7 PG (27.0-34.0); MEAN PLATELET VOLUME 8.2 FL (7.0-11.0); MONO % 7.7 % (0.0-8.0); MONOCYTE # 0.7 TH/MM3 (0-0.9); NEUT % 67.2 % (16.0-70.0); PLATELET COUNT 244 TH/MM3 (150-450); RED BLOOD COUNT 5.18 MIL/MM3 (4.50-5.90); RED CELL DISTRIBUTION WIDTH 12.3 % (11.6-17.2); WHITE BLOOD COUNT 9.1 TH/MM3 (4.0-11.0)
[2017-07-12 22:13] LABS: BILIRUBIN, URINE NEG (NEG); BLOOD, URINE TRACE (NEG); GLUCOSE,URINE NEG (NEG); KETONE, URINE 40 mg/dL (NEG); NITRITE,URINE NEG (NEG); URINE COLOR LIGHT-YELLOW (YELLW/STRAW); URINE LEUKOCYTE ESTERASE NEG (NEG)
--- NOTE | 2017-07-12 22:13 | RADRPT ---
EXAM DATE/TIME: 07/12/2017 21:43 [facility] COMPARISON: CT ABDOMEN & PELVIS W CONTRAST, March 19, 2017, 14:01. INDICATIONS : Abdominal pain IV CONTRAST: 78 cc Omnipaque 350 (iohexol) IV ORAL CONTRAST: No oral contrast ingested. RADIATION DOSE: 6.64 CTDIvol (mGy) MEDICAL HISTORY : Gastroesophageal reflux disease. Prostatitis SURGICAL HISTORY : Appendectomy. ENCOUNTER: Initial ACUITY: 1 day PAIN SCALE: 5/10 LOCATION: Bilateral Abdomen TECHNIQUE: Volumetric scanning of the abdomen and pelvis was performed. Using automated exposure control and ad justment of the mA and/or kV according to patient size, radiation dose was kept as low as reasonably achievable to obtain optimal diagnostic quality images. DICOM format image data is available electro nically for review and comparison. FINDINGS: LOWER LUNGS: The visualized lower lungs are clear. LIVER: Homogeneous density without lesion. There is no dilation of the biliary tree. No calcified gallston es. SPLEEN: Normal size without lesion. PANCREAS: Within normal limits. KIDNEYS: Normal in size and shape. There is no mass, stone or hydronephrosis. ADRENAL GLANDS: Within normal limits. VASCULAR: There is no aortic aneurysm. BOWEL/MESENTERY: The stomach, small bowel, and colon demonstrate no acute abnormality. There is no free intraperitone al air or fluid. ABDOMINAL WALL: Within normal limits. RETROPERITONEUM: There is no lymphadenopathy. BLADDER: No wall thickening or mass. REPRODUCTIVE: Within normal limits. INGUINAL: There is no lymphadenopathy or hernia. MUSCULOSKELETAL: Within normal limits for patient age. CONCLUSION: No acute disease. Myles Pelaez MD on July 12, 2017 at 22:08 Board Certified Radiologist. This report was verified electronically.
[2017-07-12] MEDS ORDERED: ONDANSETRON ODT 4 MG TAB PO ONE (22:15)
[2017-07-12 22:17] LABS: PROTHROMBIN TIME - PATIENT 10.4 SEC (9.8-11.6)
[2017-07-12 22:28] LABS: ALKALINE PHOSPHATASE 93 U/L (45-117); ALT (GPT) 23 U/L (12-78); TOTAL BILIRUBIN ADULT 0.7 MG/DL (0.2-1.0); TOTAL PROTEIN 7.7 GM/DL (6.4-8.2)
[2017-07-12 22:33] LABS: ALBUMIN 4.6 GM/DL (3.4-5.0); AST (GOT) 20 U/L (15-37); BICARBONATE 20.3 MEQ/L (21.0-32.0); BLOOD UREA NITROGEN 9 MG/DL (7-18); CALCIUM 9.4 MG/DL (8.5-10.1); CHLORIDE 108 MEQ/L (98-107); CREATININE 0.82 MG/DL (0.60-1.30); GLOMERULAR FILTRATION RATE 109 ML/MIN (>89); GLUCOSE,RANDOM 90 MG/DL (74-106); SODIUM (NA) 141 MEQ/L (136-145)
--- NOTE | 2017-07-12 23:28 | PD ---
HPI Chief Complaint: Abdominal Pain Time Seen by Provider: 21:14 Travel History International Travel<30 days: No Contact w/Intl Traveler<30days: No Traveled to known affect area: No History of Present Illness HPI Patient is a 31 year old male with multiple, nonspecific complaints. He says he came in for LLQ abdominal pain. At first, he says that it started last night, but then he reports having issues with this for many months [place]. He says he was told he had prostatitis several months ago. He says he had STD and HIV testing that were all negative. He complains of some vomiting last night. He says he is constipated and had a small bowel movement this morning. He also reports congestion of his head with "fluid" in his ears and dripping in his throat. He denies cough or difficulty breathing. He says he tried Flonase and thinks this helped. Severity is mild to moderate. PFSH Past Medical History Asthma: Yes Cancer: No Cardiovascular Problems: No COPD: No Diminished Hearing: No Endocrine: No GERD: Yes Genitourinary: Yes (prostatitis) Hiatal Hernia: No Immune Disorder: No Kidney Stones: No Musculoskeletal: No Neurologic: No Psychiatric: No Reproductive: No Respiratory: Yes Renal Failure: No Sleep Apnea: No Ulcer: No Past Surgical History AICD: No Appendectomy: Yes Arteriovenous Shunt: No Cardiac Surgery: No Ear Surgery: No Endocrine Surgery: No Eye Surgery: No Genitourinary Surgery: No Insulin Pump: No Joint Replacement: No Oral Surgery: No Pacemaker: No Thoracic Surgery: No Social History Alcohol Use: Yes (occassional) Tobacco Use: Yes (10 CIGS PER DAY) Substance Use: Yes (daily marijuana) Allergies-Medications (Allergen,Severity, Reaction): Coded Allergies: No Known Allergies (Unverified , 07/12/17) Reported Meds & Prescriptions Reported Meds & Active Scripts Active Diclofenac Sodium DR (Diclofenac Sodium) 75 Mg Tabdr 75 Mg PO BID Amoxicillin 500 Mg Cap 500 Mg PO TID 10 Days Hydrocodone-Acetamin 5-325 mg (Hydrocodone/Acetaminophen) 5 Mg-325 Mg Tablet 1 Tab PO Q4H PRN Reported Proair Respiclick Inh (Albuterol Sulfate) 90 Mcg/Act Aerp 2 Puff INH Q6H PRN Flomax (Tamsulosin HCl) 0.4 Mg Cap 0.8 Mg PO HS Review of Systems Except as stated in HPI: all other systems reviewed are Neg General / Constitutional: No: Fever, Chills HENT: Positive: Congestion Respiratory: No: Shortness of Breath Gastrointestinal: Positive: Vomiting, Abdominal Pain, Constipation Musculoskeletal: No: Myalgias Skin: No Rash, No Itching, No Change in Pigmentation Neurologic: No: Weakness, Dizziness Physical Exam Narrative GENERAL: Awake and alert, in no acute distress. SKIN: Focused skin assessment warm/dry. HEAD: Atraumatic. Normocephalic. EYES: Pupils equal and round. No scleral icterus. ENT: Mucous membranes pink and moist. NECK: Trachea midline. No JVD. CARDIOVASCULAR: Regular rate and rhythm. No murmur appreciated. RESPIRATORY: No accessory muscle use. Clear to auscultation. Breath sounds equal bilaterally. GASTROINTESTINAL: Abdomen soft, non-tender, nondistended. MUSCULOSKELETAL: No obvious deformities. No clubbing. No cyanosis. No edema. NEUROLOGICAL: Awake and alert. No obvious cranial nerve deficits. Motor grossly within normal limits. Normal speech. PSYCHIATRIC: Appropriate mood and affect; insight and judgment normal. Data Data Last Documented VS Vital Signs Date Time Temp Pulse Resp B/P (MAP) Pulse Ox O2 Delivery O2 Flow Rate FiO2 07/12/17 21:44 100 Room Air 07/12/17 21:15 16 07/12/17 21:15 96 114/81 (92) 07/12/17 19:24 98.4 Orders Orders Complete Blood Count With Diff (07/12/17 21:24) Comprehensive Metabolic Panel (07/12/17 21:24) Lipase (07/12/17 21:24) Prothrombin Time / Inr (Pt) (07/12/17 21:24) Act Partial Throm Time (Ptt) (07/12/17 21:24) Urinalysis - C+S If Indicated (07/12/17 21:24) Ct Abd/Pel W Iv Contrast(Rout) (07/12/17 21:24) Iv Access Insert/Monitor (07/12/17 21:24) Ecg Monitoring (07/12/17 21:24) Oximetry (07/12/17 21:24) Sodium Chlor 0.9% 1000 Ml Inj (Ns 1000 M (07/12/17 21:24) Sodium Chloride 0.9% Flush (Ns Flush) (07/12/17 21:30) Ketorolac Inj (Toradol Inj) (07/12/17 21:30) Iohexol 350 Inj (Omnipaque 350 Inj) (07/12/17 21:51) Ondansetron Odt (Zofran Odt) (07/12/17 22:15) Labs Laboratory Tests Test 07/12/17 21:45 White Blood Count 9.1 TH/MM3 Red Blood Count 5.18 MIL/MM3 Hemoglobin 15.9 GM/DL Hematocrit 45.6 % Mean Corpuscular Volume 87.9 FL Mean Corpuscular Hemoglobin 30.7 PG Mean Corpuscular Hemoglobin Concent 35.0 % Red Cell Distribution Width 12.3 % Platelet Count 244 TH/MM3 Mean Platelet Volume 8.2 FL Neutrophils (%) (Auto) 67.2 % Lymphocytes (%) (Auto) 22.9 % Monocytes (%) (Auto) 7.7 % Eosinophils (%) (Auto) 0.5 % Basophils (%) (Auto) 1.7 % Neutrophils # (Auto) 6.1 TH/MM3 Lymphocytes # (Auto) 2.1 TH/MM3 Monocytes # (Auto) 0.7 TH/MM3 Eosinophils # (Auto) 0.0 TH/MM3 Basophils # (Auto) 0.2 TH/MM3 CBC Comment DIFF FINAL Differential Comment Prothrombin Time 10.4 SEC Prothromb Time International Ratio 1.0 RATIO Activated Partial Thromboplast Time 24.5 SEC Urine Color LIGHT-YELLOW Urine Turbidity CLEAR Urine pH 7.0 Urine Specific Hardy 1.011 Urine Protein NEG mg/dL Urine Glucose (UA) NEG mg/dL Urine Ketones 40 mg/dL Urine Occult Blood TRACE Urine Nitrite NEG Urine Bilirubin NEG Urine Urobilinogen LESS THAN 2.0 MG/DL Urine Leukocyte Esterase NEG Urine WBC LESS THAN 1 /hpf Microscopic Urinalysis Comment CULT NOT INDICATED Blood Urea Nitrogen 9 MG/DL Creatinine 0.82 MG/DL Random Glucose 90 MG/DL Total Protein 7.7 GM/DL Albumin 4.6 GM/DL Calcium Level 9.4 MG/DL Alkaline Phosphatase 93 U/L Aspartate Amino Transf (AST/SGOT) 20 U/L Alanine Aminotransferase (ALT/SGPT) 23 U/L Total Bilirubin 0.7 MG/DL Sodium Level 141 MEQ/L Potassium Level 4.0 MEQ/L Chloride Level 108 MEQ/L Carbon Dioxide Level 20.3 MEQ/L Anion Gap 13 MEQ/L Estimat Glomerular Filtration Rate 109 ML/MIN Lipase 113 U/L MDM Medical Decision Making Medical Screen Exam Complete: Yes Emergency Medical Condition: Yes Medical Record Reviewed: Yes Differential Diagnosis UTI vs constipation vs colitis vs gastroenteritis vs diverticulitis Narrative Course Patient is a 31 year old male who comes in with multiple medical complaints, many of which seem to be chronic in nature. Exam shows no acute abnormalities. IV established, labs sent. Labs show no acute abnormalities. CT abd/pelvis performed show no acute abnormalities. Last 24 hours Impressions Abdomen/Pelvis CT 07/12/172123 Signed Impressions: Service Date/Time: Wednesday, July 12, 2017 21:43 - CONCLUSION: No acute disease. Myles Pelaez MD Given IVF, Toradol, Zofran. He reports feeling better. He is advised to try increasing his Fiber, taking Tylenol or Ibuprofen for pain and following up with a primary care doctor. Return to the ED as needed for any worsening symptoms. Diagnosis Primary Impression: Abdominal pain Qualified Codes: R10.32 - Left lower quadrant pain Referrals: [facility] call for appointment Patient Instructions: Abdominal Pain (ED), Constipation (ED), General Instructions Additional Instructions: Take Tylenol or Ibuprofen as needed for pain. Increase your fluid intake. Increase your fiber intake. Follow up with a primary care doctor. Return to the ED as needed for any worsening symptoms. Disposition: 01 DISCHARGE HOME Condition: Stable Erin Guan MD July 12, 2017 23:28
[2017-07-12 23:30] VITALS: BP 117/67; PULSE 66; RESP 16; O2SAT 100
== END 2017-07-12 23:39 | disposition home or self-care (01) ==
LOC: NEPE 18:53
DX: R10.32 Left lower quadrant pain (principal); J45.909 Unspecified asthma, uncomplicated; F17.210 Nicotine dependence, cigarettes, uncomplicated
CPT/HCPCS: 74177; 80053; 81001; 83690; 85025; 85610; 85730; 96374; 99284; J1885; J7030; Q9967